=== PATIENT | female | born 1945 | race Caucasian/White ===

== ENCOUNTER 2020-05-23 11:10 | Outpatient (CLI) | payer MEDICARE, OTHER, SELFPAY ==
--- NOTE | ~2020-05-23 | MM_ITS ---
EXAMINATION: MM screening [facility] BI w emery HISTORY: Screening mammogram TECHNIQUE: Craniocaudal and mediolateral oblique 3-D tomosynthesis images were obtained and synthetic 2-D images were generated. CAD analysis was submitted and interpreted. COMPARISON: 2018, 01/11/2018, 01/04/2017 bilateral digital screening mammogram examinations BREAST PARENCHYMAL COMPOSITION: The breasts are almost entirely fatty. FINDINGS: There is no evidence of suspicious mass, calcification, or architectural distortion to sugg est malignancy in either breast. There has been no suspicious interval change. IMPRESSION: 1. No mammographic evidence of malignancy. 2. Recommend routine screening mammography in one year. BI-RADS Category 1: Negative Reviewed, dictated and finalized at location A. S AGENT TRADING [employer]AMPS
== END 2020-05-23 11:11 | disposition home or self-care (01) ==
LOC: ANHIMG 11:13
PROVIDERS: PCP Internal Medicine; Visit Provider Internal Medicine
DX: Z12.31 Encounter for screening mammogram for malignant neoplasm of breast (principal)
CPT/HCPCS: 77063; 77067

== ENCOUNTER 2020-10-15 10:02 | Outpatient (CLI) | payer MEDICARE, OTHER, SELFPAY ==
--- NOTE | ~2020-10-15 | US_ITS ---
US abdomen complete EXAMINATION: US Abdomen Complete INDICATION: Abdominal pain PROCEDURE: Realtime High Resolution abdomen ultrasound. COMPARISON: No prior studies for comparison FINDINGS There are echogenic foci in the gallbladder lumen without posterior shadowing, most likely gallbladde r polyps versus sludge. No definite gallstones. Common bile duct measures 3 mm. Liver echotexture is increased, consistent with fatty infiltration.. Pancreas within normal limits. Pancreatic tail is obscured by bowel gas. There are calcifications of the spleen, consistent with gr anulomas. Renal echotexture is within normal limits bilaterally without hydronephrosis, contour defor aryan mass or renal stone. Right kidney measures 10.4 cm. Left kidney measures 10.2 cm. Visualized aspects of the aorta and IVC are within normal limits. Portal vein is patent. No sonograph ic Valerio's sign indicated by the technologist. IMPRESSION: 1: Echogenic foci in the gallbladder lumen which may represent polyps or sludge. 2: Hepatic steatosis. Reviewed, dictated and finalized at location B. IMPRESSION: 1: Echogenic foci in the gallbladder lumen which may represent polyps or sludge . 2: Hepatic steatosis.
== END 2020-10-15 10:03 | disposition home or self-care (01) ==
PROVIDERS: PCP Internal Medicine; Visit Provider Internal Medicine
DX: R10.9 Unspecified abdominal pain (principal); K76.0 Fatty (change of) liver, not elsewhere classified
CPT/HCPCS: 76700

== ENCOUNTER 2020-10-29 09:26 | Outpatient (CLI) | payer MEDICARE, OTHER, SELFPAY ==
--- NOTE | ~2020-10-29 | NM_ITS ---
EXAMINATION: NM hepatobiliary wo pharm DATE: 10/29/2020 12:26 INDICATION: Gallbladder disease with right upper quadrant abdominal pain COMPARISON: None. TECHNIQUE: 4 mCi Tc-99m mebrofenin (Choletec) was administered intravenously. Scintigraphic images o f the abdomen were obtained for one hour. At the 1 hour time point, the patient drank 8 oz Ensure, an d imaging was continued for 60 minutes. Gallbladder ejection fraction was calculated by the technolog ist. FINDINGS: There is normal clearance of radiotracer from the blood pool. There is homogeneous tracer u ptake by the liver. Activity progresses to the bowel and gallbladder. The gallbladder ejection fract ion (GBEF) is 2%. Note that with this technique, normal GBEF >= 33%. IMPRESSION: 1. Gallbladder ejection fraction of 2% markedly below the limits of normal which could be seen with gallbladder dysfunction or chronic cholecystitis in the appropriate clinical setting. Reviewed, dictated and finalized at location A. IMPRESSION: 1. Gallbladder ejection fraction of 2% markedly below the limits of normal whi ch could be seen with gallbladder dysfunction or chronic cholecystitis in the a ppropriate clinical setting.
== END 2020-10-29 09:27 | disposition home or self-care (01) ==
PROVIDERS: PCP Internal Medicine; Visit Provider Internal Medicine
DX: K82.8 Other specified diseases of gallbladder (principal)
CPT/HCPCS: 78226; A9537

== ENCOUNTER 2020-11-19 10:07 | Outpatient (CLI) | payer MEDICARE, OTHER, SELFPAY ==
--- NOTE | 2020-11-19 10:11 | ECG_ITS ---
Measurements Intervals Hyder Rate: 58 P: 39 CA: 200 QRS: -10 QRSD: 110 T: 29 QT: 421 QTc: 414 Interpretive Statements SINUS BRADYCARDIA INCOMPLETE RIGHT BUNDLE BRANCH BLOCK BORDERLINE ECG Electronically Signed On 11-19-2020 12:02:42 CDT by Thang Abrams D.O.
[2020-11-19 10:38] LABS: Albumin Level 4.7 g/dL (3.5-5.1)
[2020-11-19 10:44] LABS: Basophils Percent Auto 0.3 % (0.2-1.2); Eosinophils Absolute Auto 0.1 K/mm3 (0-0.3); Eosinophils Percent Auto 1.7 % (0-4.4); Hematocrit 42.3 % (37.0-47.0); Hemoglobin 13.7 g/dL (12.0-15.0); Immature Granulocyte Absolute 0.01 K/mm3 (0.00-0.031); Immature Granulocyte Percent A 0.2 % (0-0.5); Lymphocytes Absolute Auto 1.67 K/mm3 (0.9-3.2); Lymphocytes Percent Auto 29.2 % (18.3-44.2); Mean Corpuscular HGB Conc 32.4 g/dl (32-36); Mean Corpuscular Hemoglobin 28.1 pg (26-34); Mean Corpuscular Volume 86.7 fl (80-100); Mean Platelet Volume 9.2 fl (7.4-10.4); Monocytes Absolute Auto 0.3 K/mm3 (0.1-0.6); Monocytes Percent Auto 5.2 % (2.6-8.5); Neutrophils Absolute Auto 3.6 K/mm3 (1.3-6.7); Neutrophils Percent Auto 63.4 % (45.5-73.1); Platelet Count Result 217 k/mm3 (150-375); Red Blood Count 4.88 M/mm3 (4.2-5.4); Red Cell Distribution Width 12.4 % (11.5-14.5); White Blood Count 5.7 K/mm3 (4.5-10.0)
[2020-11-19 10:48] LABS: Alanine Aminotransferase 24 U/L (4-35); Alkaline Phosphatase 49 U/L (38-126); Amylase 62 U/L (30-110); Aspartate Amino Transferase 23 U/L (14-36); Bilirubin,Total 0.6 mg/dL (0.2-1.3); Lipase 171 U/L (23-300)
== END 2020-11-19 10:08 | disposition home or self-care (01) ==
LOC: ANHSURGERY 10:09
PROVIDERS: PCP Internal Medicine; Visit Provider Surgery
DX: Z01.818 Encounter for other preprocedural examination (principal); K82.8 Other specified diseases of gallbladder
CPT/HCPCS: 36415; 80076; 82150; 83690; 85025; 93005

== ENCOUNTER → 2020-11-21 02:50 | Outpatient (CLI) | payer MEDICARE, OTHER, SELFPAY ==
[2020-11-21 18:15] LABS: SARS-CoV-2 RNA PCR Negative
== END ==
PROVIDERS: PCP Internal Medicine; Visit Provider Surgery
DX: Z01.812 Encounter for preprocedural laboratory examination (principal); Z20.822 Contact with and (suspected) exposure to COVID-19
CPT/HCPCS: C9803; U0003; U0005

== ENCOUNTER 2020-11-24 00:56 | Day surgery (SDC) | payer MEDICARE, OTHER, SELFPAY ==
[2020-11-14 13:15] VITALS: BMI 28.5
[2020-11-24] VITALS (12 sets, daily range): BP systolic 102–134; BP diastolic 51–72; PULSE 63–81; RESP 10–20; TEMP 36.3–36.4; O2SAT 96–100
[2020-11-24] MEDS: LACTATED RINGERS 1,000 ML 30 ML IV CONT ×2 (07:30→10:53)
[2020-11-24] MEDS: ACETAMINOPHEN 500 MG TABLET 1000 MG PO (07:44)
[2020-11-24] MEDS: KETOROLAC 15 MG/ML VIAL (*BKC) IV PUSH (07:45)
--- NOTE | 2020-11-24 08:22 | WPDANESEPPF ---
Anes - Initial Pre Proc Eval Procedure: Operation Date: 11/24/20 08:30 Proposed Procedures p Laparoscopic Cholecystectomy, Possible Intraoperative Cholangiogram, Possible Open - Christiano Scherer MD Date/Time: 11/24/20 08:22 Surgeon: Christiano Scherer MD Pre Op Diagnosis: biliary dyskinesia Patient Data Age: 75 Gender: F Height: 5 ft 2 in Weight: 70.8 kg Allergies Allergy/AdvReac Type Severity Reaction Status Date / Time Iodinated Contrast Media Allergy Severe Hives Verified 11/24/20 07:11 Penicillins Allergy Severe HIVES Verified 11/24/20 07:11 Contrast Media Allergy Mild Hives / Uncoded 11/14/20 12:43 Red Face Home Medications Medication Instructions Recorded Confirmed Type glucosamine sulfate 500 mg tablet 500 mg PO DAILY tablet 04/24/19 11/24/20 History mirabegron 50 mg tablet,extended 50 mg PO DAILY 04/24/19 11/24/20 History release 24 hr levothyroxine 100 mcg tablet 100 mcg PO DAILY #90 tablet 09/16/20 11/24/20 Rx multivitamin 1 tablet PO DAILY 10/06/20 11/24/20 History esomeprazole magnesium 20 mg PO PRN PRN 11/14/20 11/14/20 History zinc 50 mg PO BID 11/14/20 11/24/20 History atorvastatin 10 mg PO DAILY 11/24/20 11/24/20 History hydrochlorothiazide 12.5 mg PO DAILY 11/24/20 11/24/20 History losartan 25 mg PO DAILY 11/24/20 11/24/20 History trazodone 50 mg PO DAILY 11/24/20 11/24/20 History Patient hx anesthesia problems: post op nausea/vomiting Family hx anesthesia problems: none [facility] Past Medical History Medical History (Updated 11/06/20 @ 10:23 by Lashaun Hairston) Acquired hypothyroidism Dyslipidemia Essential hypertension GERD (gastroesophageal reflux disease) History of aneurysm Surgical History Surgical History (Updated 11/06/20 @ 09:38 by Lianna Solano CMA) H/O brain surgery H/O: hysterectomy History of bladder suspension procedure History of cranial surgery x4 History of recent intracranial surgery History of thyroidectomy Family History Family History Sibling Family history of lung cancer Family history of malignant neoplasm of uterus Patient's sister is Mother Family history of malignant neoplasm of uterus Patient's mother is Father Family history unknown Other Hypertension Social History Social History (Updated 11/06/20 @ 09:30 by Lianna Solano [facility]) Smoking status: Never smoker Alcohol intake: current Drinks per week: 3 Substance use: unknown Living arrangements: with family Gender identity (if verbalized by the patient): Female Spiritual care concerns: No Anes - Eval Final PreProcedure Day of Procedure 11/24/20 08:22 Patient weight: overweight Heart: regular rate and rhythm Lungs: clear to auscultation Airway: Mallampati scale class II Neurological: alert and oriented Last oral intake: >/= 8 hours ASA classification: III Emergent: no Anesthetic plan: proceed Anesthesia type and monitoring: general ETT and standard monitoring Informed Consent: The patient's anesthetic plan and its attendant risks and benefits were discussed with the patient/family/POA. Questions were solicited and answers provided to the satisfaction of the patient/family/POA.
--- NOTE | 2020-11-24 08:32 | WPDHPUPDATE1 ---
History and Physical Update Update Date/Time: 11/24/20 08:32 History and Physical has been reviewed, including an updated exam of the patient. There are NO changes in the patient's condition. Risks, benefits, and alternatives have been discussed and questions answered. Patient agrees to proceed with procedure.
[2020-11-24] MEDS: BUPIVACAINE/EPINEPHRINE 0.5% 10 ML VIAL 20 ML INFILTRATE (09:16)
[2020-11-24] MEDS: ceFAZolin 2 GM/D5W 50 ML 2 GM/50 ML BAG IVPB (09:16)
--- NOTE | 2020-11-24 10:59 | P.OP_ITS ---
Procedure Note - Detailed Date of Procedure 11/24/20 Pre-op Diagnosis biliary dyskinesia Post-op Diagnosis same Procedure Performed Laproscopic Cholecystectomy Surgeon Christiano Scherer MD Inspector Automatic Typewriter Claribel CALDWELL.OR press assistant and feeder Anesthesia general Indications Please see the history and physical. Patient has been having occasional upper abdominal pain and had a HIDA scan showing only 2% ejection fraction indicated biliary dyskinesia. She also had an ultrasound showing possible gallbladder polyps versus sludge. Findings Patient had unremarkable appearing gallbladder. Upon removal I could not palpate any stones within the gallbladder. There was normal anatomy at the triangle of Calot. Description of Procedure Patient was seen preoperatively in the holding area and risks, benefits and a lternatives confirmed. Patient was taken to the operating room and general anesthesia was induced. A time out was then preformed with the surgery team confirming patient and site of surgery. The abdomen was prepped and draped in the usual sterile fashion. Incision was made just below the umbilicus with an 11 blade knife. I placed 2 stay sutures of O- Vicryl on either side of the mid- line fascia beneath the umbilicus and was then able to slide in the Llamas cannula through the fascial defect into the peritoneum. First under low flow and then under high flow the abdomen was insufflated w ith carbon dioxide never exceeding a pressure of 14. Three 5 mm trocars were then introduced under direct vision. The following trocars were introduced under direct vision: a 5 mm in the epigastrium and two 5 mm trocars along the right costal margin laterally in the subcostal area. There were not any adhesions to the underside of the gallbladder. I then carefully used the L- shaped cautery and the [place] dissector to dissect out the triangle of Calot. I then was able to dissect out both the cystic duct and cystic artery and identify a window of safety. The gall bladder was grasped and the cystic duct and artery were dissected free and clipped with an 5 mm endo-clip school custodian. The cystic duct and artery were clipped with use of 2 clips on the patient's side 1 on the gallbladder side utilizing a 5 mm endoclip-school custodian. The cystic duct was then transected. The cystic artery was also transected at this point. The gall bladder was removed using electrocautery and then removed from the abdomen using a large 10 mm grasper via the umbilical incision. Upon removal from the abdomen I could not palpate any gallstones within the gallbladder. The trocars were removed visualizing hemostasis and the remaining gas evacuated. The large trocar site at the umbilicus was closed with use of the 2 stay sutures of 0 Vicryl mentioned above and also a figure of 8 O-Vicryl suture. The 2 stay sutures mentioned above on either side of the fascia were also tied together to help approximate this midline fascia. Further local anesthetic was placed into each incision for postop pain control. The skin incisions were closed with subcuticular suture of 4-0 Monocryl. Surgical glue then was applied to all the incisions. Patient tolerated the procedure well was taken to the recovery room in good condition. Implants none Packing No Pathology yes (Gallbladder) Complications No immediate complications Condition stable Disposition PACU
--- NOTE | 2020-11-24 11:36 | SUR.PHASEI ---
02 removed at 1135.
== END 2020-11-24 13:36 | disposition home or self-care (01) ==
PROVIDERS: PCP Internal Medicine; Visit Provider Surgery
PROC: 0FT44ZZ Resection of Gallbladder, Percutaneous Endoscopic Approach (ICD-10-PCS; CPT 47562; principal; 2020-11-24 08:30)
DX: K80.10 Calculus of gallbladder with chronic cholecystitis without obstruction (principal); E78.5 Hyperlipidemia, unspecified; E03.9 Hypothyroidism, unspecified; I10 Essential (primary) hypertension; K21.9 Gastro-esophageal reflux disease without esophagitis
CPT/HCPCS: 47562; 88304; A9270; J0330; J0690; J1100; J1885; J2405; J2704; J3010; J7120; Q9966

== ENCOUNTER → 2021-05-11 10:48 | Outpatient (CLI) | payer MEDICARE, OTHER, SELFPAY ==
[2021-05-11 18:36] LABS: SARS-CoV-2 RNA PCR Negative
== END ==
PROVIDERS: PCP Internal Medicine; Visit Provider Internal Medicine
DX: J98.8 Other specified respiratory disorders (principal); B97.89 Other viral agents as the cause of diseases classified elsewhere; Z20.822 Contact with and (suspected) exposure to COVID-19
CPT/HCPCS: C9803; U0003; U0005

== ENCOUNTER → 2021-05-28 10:31 | Outpatient (CLI) | payer MEDICARE, OTHER, SELFPAY ==
--- NOTE | ~2021-05-28 | XR_ITS ---
EXAMINATION: XR chest 2V DATE: 05/28/2021 11:07 INDICATION: Cough, unspecified TECHNIQUE: PA and lateral views of the chest are obtained. COMPARISON: 08/01/2015 FINDINGS: The lungs are free of acute opacities. There is no pleural effusion or pneumothorax. The ca rdiomediastinal silhouette is normal. There is severe thoracic spondylosis. Catheter tubing courses a nteriorly in the right chest wall, into the region of the right axilla, then enters the abdomen poste riorly ending with its tip adjacent under the right hemidiaphragm. Surgical clips in the right upper quadrant are likely from prior cholecystectomy. IMPRESSION: 1. No acute cardiopulmonary abnormality. Reviewed, dictated and finalized at location A. L SALVAGER
== END ==
PROVIDERS: PCP Internal Medicine; Visit Provider Internal Medicine
DX: R05.9 Cough, unspecified (principal)
CPT/HCPCS: 71046

== ENCOUNTER 2021-06-24 10:14 | Outpatient (CLI) | payer MEDICARE, OTHER, SELFPAY ==
--- NOTE | ~2021-06-24 | MM_ITS ---
EXAMINATION: MM screening [facility] BI w emery HISTORY: Screening mammogram TECHNIQUE: Craniocaudal and mediolateral oblique 3-D tomosynthesis images were obtained and synthetic 2-D images were generated. CAD analysis was submitted and interpreted. COMPARISON: 05/23/2020, 04/11/2019, 01/11/2018 BREAST PARENCHYMAL COMPOSITION: The breasts are almost entirely fatty. FINDINGS: There is no evidence of suspicious mass, calcification, or architectural distortion to sugg est malignancy in either breast. There has been no suspicious interval change. IMPRESSION: 1. No mammographic evidence of malignancy. 2. Recommend routine screening mammography in one year. BI-RADS Category 1: Negative Reviewed, dictated and finalized at location A. SEWER
== END 2021-06-24 10:15 | disposition home or self-care (01) ==
LOC: ANHIMG 10:15
PROVIDERS: PCP Internal Medicine; Visit Provider Internal Medicine
DX: Z12.31 Encounter for screening mammogram for malignant neoplasm of breast (principal)
CPT/HCPCS: 77063; 77067

== ENCOUNTER 2022-09-20 10:26 | Outpatient (CLI) | payer MEDICARE, OTHER, SELFPAY ==
--- NOTE | ~2022-09-20 | XR_ITS ---
EXAMINATION: XR chest 2V DATE: 09/20/2022 10:51 INDICATION: Shortness of breath TECHNIQUE: PA and lateral views of the chest were obtained. COMPARISON: Chest radiograph dated 05/28/2021 FINDINGS: Slight increase in size of a still small right pleural effusion with blunting of the right posterior sulcus and costophrenic angle. No other airspace opacities, pulmonary edema, pneumothorax or left ple ural effusion. The cardiomediastinal silhouette is normal. Unchanged ventriculoperitoneal shunt with distal tip in the right upper quadrant. Cholecystectomy clips also in the right upper quadrant. IMPRESSION: 1. Slight interval increase in a still small right pleural effusion. Reviewed, dictated and finalized at location A.
== END 2022-09-20 10:27 | disposition home or self-care (01) ==
PROVIDERS: PCP Internal Medicine; Visit Provider Nurse Practitioner Family
DX: J90 Pleural effusion, not elsewhere classified (principal); R06.02 Shortness of breath
CPT/HCPCS: 71046

== ENCOUNTER 2023-10-10 09:04 | Outpatient (CLI) | payer MEDICARE, OTHER, SELFPAY ==
--- NOTE | ~2023-10-10 | XR_ITS ---
EXAMINATION: XR ribs RT 2V w CXR 2V, XR thoracic spine 2V, XR lumbar spine 2-3V DATE: 10/10/2023 09:31 INDICATION: Pleurodynia and right sided back pain TECHNIQUE: 1. PA and lateral views of the chest and 3 views of the right ribs were obtained. 2. AP and lateral views of the thoracic spine were obtained. 3. AP, lateral and coned-down lateral lumbosacral views of the lumbar spine were obtained. COMPARISON: None FINDINGS: Chest and right ribs: Small right pleural effusion with blunting at the right posterior sulcus and costophrenic angle. No o ther airspace opacities in the right lung. Left lung remains clear. No pulmonary edema, pneumothorax or left-sided pleural effusion. Catheter tubing projecting over the right side of the neck, across th e right chest wall with distal tip in the right upper quadrant of the abdomen, likely ventriculoperit bennett shunt. Heart size is normal. Cholecystectomy clips in right upper quadrant. No rib fractures id entified. Thoracic spine: 9 degrees thoracic dextrocurvature. There is also mild thoracic kyphosis. Minimal to mild anterior we dging of a few mid thoracic vertebral bodies, likely T4 and T6-T9. Multilevel severe disc height loss with degenerative endplate changes throughout much of the thoracic spine. Lumbar spine: 15 degrees thoracolumbar levoscoliosis. Vertebral body heights are normal. Moderate disc height loss at T12-L1, L4-L5 and L5-S1 with mild disc height loss at L3-L4. Multilevel moderate to severe facet o steoarthritis throughout the lumbar spine. Mild bilateral sacroiliac osteoarthritis. There are severa l surgical clips in the pelvis. IMPRESSION: 1. Small right pleural effusion. 2. Mild S-shaped scoliosis of the thoracic and lumbar spine with severe thoracic and moderate lumbar spondylosis. 2. Mild thoracic kyphosis with minimal to mild anterior wedging of a few mid thoracic vertebral darryl s. Reviewed, dictated and finalized at location A. IMPRESSION: 1. Small right pleural effusion. 2. Mild S-shaped scoliosis of the thoracic and lumbar spine with severe thoraci c and moderate lumbar spondylosis. 2. Mild thoracic kyphosis with minimal to mild anterior wedging of a few mid th oracic vertebral bodies. IMPRESSION: 1. Small right pleural effusion. 2. Mild S-shaped scoliosis of the thoracic and lumbar spine with severe thoraci c and moderate lumbar spondylosis. 2. Mild thoracic kyphosis with minimal to mild anterior wedging of a few mid th oracic vertebral bodies.
== END 2023-10-10 09:05 | disposition home or self-care (01) ==
PROVIDERS: PCP Nurse Practitioner Family; Visit Provider Nurse Practitioner Family
DX: R07.81 Pleurodynia (principal); M54.50 Low back pain, unspecified; J90 Pleural effusion, not elsewhere classified
CPT/HCPCS: 71046; 71100; 72070; 72100

== ENCOUNTER 2023-10-11 15:23 | Outpatient (CLI) | payer MEDICARE, OTHER, SELFPAY ==
--- NOTE | ~2023-10-11 | CT_ITS ---
CT Scan of the Chest without Contrast: Clinical Indication: Abnormal findings Technique: Contiguous sections were acquired throughout the chest without intravenous contrast. Dose reduction technique was used on this scan by utilizing automated exposure control and iterative recon struction technique. The dose-length product (DLP) was 152.61 mGy-cm. Findings: There is no evidence of any significant mediastinal, hilar or axillary lymphadenopathy. The mediastin al soft tissues appear normal. There is a small right pleural effusion with probable ventricular pleural shunt present. No left pleu ral effusion. Probable area of rounded atelectasis at the right lung base. No pericardial effusion. C alcified right upper lobe granuloma present. Left lung clear. The lungs are clear. No pulmonary nodules or infiltrates are noted. Images through the upper abdomen reveal no abnormalities. There is extensive degenerative disc change throughout the thoracic spine. Impression: Small right pleural effusion with ventriculopleural shunt present. Rounded atelectasis right lung bas e. Reviewed, dictated and finalized at [facility]. Impression: Small right pleural effusion with ventriculopleural shunt present. Rounded atel ectasis right lung base.
== END 2023-10-11 15:24 | disposition home or self-care (01) ==
LOC: ANHIMG 15:26
PROVIDERS: PCP Nurse Practitioner Family; Visit Provider Nurse Practitioner Family
DX: R93.89 Abnormal findings on diagnostic imaging of other specified body structures (principal); J90 Pleural effusion, not elsewhere classified; J98.11 Atelectasis; R06.02 Shortness of breath
CPT/HCPCS: 71250

== ENCOUNTER 2023-10-12 13:30 | Outpatient (CLI) | payer MEDICARE, OTHER, SELFPAY ==
--- NOTE | ~2023-10-12 | DEXA_ITS ---
? Bone Density Report? Name:? MILLIE WYATT Justin Patient ID:??? [id number] Age:? 78 Sex:? Female Ethnicity:? White Date of : 1945 Indication: postmenopausal; screening for osteoporosis; height loss; hysterectomy; Referring Provider: PRASHANT MASON Study: Bone densitometry was performed. Exam Date: October 12, 2023 Accession number: [id number] Bone Density: Region? BMD??? T-score? Z-score?? Classification AP Spine(L2, L3, L4)? 1.319??? 2.2?4.9? Normal Femoral Neck (Left)? 0.941??? 0.8? 3.1? Normal Total Hip (Left)? 1.124??? 1.5? 3.5? Normal Femoral Neck (Right)? 0.934??? 0.8? 3.0? Normal Total Hip (Right)? 1.085??? 1.2? 3.1? Normal Femoral Neck Mean? 0.938??? 0.8? 3.0? Normal Total Hip Mean? 1.105??? 1.3? 3.3? Normal World Health Organization criteria for BMD impression classify patients as: Normal (T-score at or above -1.0), Osteopenia (T-score between -1.0 and -2.5), or Osteoporosis (T-score at or below -2.5). 10-year Fracture Risk: FRAX not reported because: ? All T-scores for Spine Total, Hip Total, Femoral Neck at or above -1.0 Clinical Information Provided by Patient: Has used the following medications: Vitamin D Has the following medical conditions: Hysterectomy Patient maximum height was 62 Menopause Age: 40 No regular weight bearing exercise Drinks caffeinated beverages Onset of menses at age 12 Number of children 3 Impression: The patient has normal bone mass. Discussion: LOW RISK OF FRACTURE; BONE DENSITY IS WELL ABOVE THE MINIMUM DESIRABLE LEVEL AND ABOVE AVERAGE FOR AGE AND SEX AT ALL SKELETAL SITES TESTED. This person's bone density is above expected limits for age and sex. This is rarely clinically significant, but should be pursued if there are significant musculoskeletal complaints. The patient should follow a healthful lifestyle (good nutrition with adequate calcium and vitamin D, and appropriate weight- bearing exercise). Follow-Up: Consider repeating this study in 5 years or sooner if there is some new clinical indication. Reported by: Dr. Brody Mack on 48:07:00 AM. RENNY
--- NOTE | ~2023-10-12 | MM_ITS ---
EXAMINATION: MM screening [facility] BI w emery HISTORY: Screening mammogram TECHNIQUE: Craniocaudal and mediolateral oblique 3-D tomosynthesis images were obtained and synthetic 2-D images were generated. CAD analysis was submitted and interpreted. COMPARISON: 06/24/2021, 05/2020 bilateral screening mammogram examinations BREAST PARENCHYMAL COMPOSITION: The breasts are almost entirely fatty. FINDINGS: There is no evidence of suspicious mass, calcification, or architectural distortion to sugg est malignancy in either breast. There has been no suspicious interval change. IMPRESSION: 1. No mammographic evidence of malignancy. 06/24/2021, 05/23/2020 bilateral screening mammogram examinat ions 2. Recommend routine annual mammographic screening in one year BI-RADS Category 1: Negative Reviewed, dictated and finalized at location A. IMPRESSION: 1. No mammographic evidence of malignancy. 06/24/2021, 05/23/2020 bilateral screen ing mammogram examinations 2. Recommend routine annual mammographic screening in one year BI-RADS Category 1: Negative
== END 2023-10-12 13:31 | disposition home or self-care (01) ==
LOC: CHSIMG 13:31
PROVIDERS: PCP Nurse Practitioner Family; Visit Provider Nurse Practitioner Family
DX: Z12.31 Encounter for screening mammogram for malignant neoplasm of breast (principal); Z78.0 Asymptomatic menopausal state
CPT/HCPCS: 77063; 77067; 77080